=== PATIENT | female | born 2000 | race American Indian/Alaskan Native ===

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

== ENCOUNTER 2019-01-10 19:36 | Emergency (ER) | payer MEDICAID ==
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
[2019-01-10 21:00] LABS: Basophils % (Auto) 0.4 % (0.0-1.8); Hematocrit 36.4 % (30.3-42.9); Lymphocytes # (Auto) 1.4 K/mm3 (1.2-5.4); Lymphocytes % (Auto) 31.9 % (13.4-35.0); Mean Corpuscular HGB Conc 33 % (30-34); Mean Corpuscular Volume 84 fl (79-97); Monocytes # (Auto) 0.3 K/mm3 (0.0-0.8); Monocytes % (Auto) 7.2 % (0.0-7.3); Platelet Count 252 K/mm3 (140-440); Red Blood Count 4.36 M/mm3 (3.65-5.03); Red Cell Distribution Width 13.2 % (13.2-15.2)
[2019-01-10 21:07] LABS: Alanine Aminotransferase 11 units/L (7-56); Albumin 4.6 g/dL (3.9-5); BUN/Creatinine Ratio 19; Blood Urea Nitrogen 13 mg/dL (7-17); Calcium 9.4 mg/dL (8.4-10.2); Hemolysis Index 4
[2019-01-10 22:09] LABS: HCG Qualitative,Urine Negative (Negative)
[2019-01-10 22:12] LABS: Bilirubin,Urine NEG (Negative); Blood,Urine LG (Negative); Color,Urine Amber (Yellow); Hyaline Casts,Urine 2 /LPF; Mucus,Urine 3+ /HPF
--- NOTE | 2019-01-10 23:12 | XRay Report ---
CHEST 2 VIEWS INDICATION: Medical Clearance Psych. COMPARISON: None FINDINGS: Support devices: None. Heart: Within normal limits. Lungs: No acute air space or interstitial disease. Pleura: No significant pleural effusion. No pneumothorax. Additional findings: None. IMPRESSION: 1. No acute findings. Signer Name: Perry Correa MD Signed: 01/10/2019 11:07 PM Workstation Name: [id number]
[2019-01-10 23:54] VITALS: BP 116/75
== END 2019-01-10 23:56 | disposition home or self-care (01) ==
LOC: ED 19:36
DX: F31.9 Bipolar disorder, unspecified (principal); R46.89 Other symptoms and signs involving appearance and behavior; R45.850 Homicidal ideations; F43.10 Post-traumatic stress disorder, unspecified; F32.9 Major depressive disorder, single episode, unspecified; F41.9 Anxiety disorder, unspecified; F17.200 Nicotine dependence, unspecified, uncomplicated
CPT/HCPCS: 36415; 71046; 80053; 80320; 81001; 81025; 84703; 85025; 87086; G0480

== ENCOUNTER 2019-01-11 01:25 | Emergency (ER) | payer MEDICAID ==
--- NOTE | 2019-01-11 02:00 | Emergency Department Report ---
ED Psych HPI - General Chief Complaint: Medical Clearance Stated Complaint: NEED MED CHANGE Source: patient Mode of arrival: Ambulatory - History of Present Illness Initial Comments: pt is a 18 y/o aam with hx of depression who presents for worsening depression, requesting placement is psych facility. pt denies SI or HI, does endorse increased depressive thoughts. pt denies substance but want to talk psychiatrist for medication change as hers is not working (Minipress, zoloft,vistaril trazadone). Symptoms are preventing sleep. pt has been seen and dc'd earlier today. She now rates depression symptoms at 09/19. There is no plan, no SI, no HI, states just too depressed. p states she receives outpatient care at [facility]. Complaint: feels depressed Onset/Timin -: week(s) Associated Psychiatric Symptoms: depression History of same: Yes Quality: constant Improves With: none Worsens With: none Context: recent drug abuse Treatments Prior to Arrival: none - Related Data Home Medications Medication Instructions Recorded Confirmed Last Taken OLANzapine [ZyPREXA] 10 mg PO QHS 01/11/19 01/11/19 01/09/19 Prazosin [Minipress] 1 mg PO BID 01/11/19 01/11/19 01/09/19 Sertraline [Zoloft] 50 mg PO QAM 01/11/19 01/11/19 01/09/19 hydrOXYzine PAMOATE [Vistaril] 25 mg PO QHS 01/11/19 01/11/19 01/09/19 traZODone [Desyrel] 100 mg PO QHS 01/11/19 01/11/19 01/09/19 Allergies Allergy/AdvReac Type Severity Reaction Status Date / Time No Known Allergies Allergy Unverified 12/09/18 10:41 ED Review of Systems ROS: Stated complaint: NEED MED CHANGE Other details as noted in HPI Constitutional: denies: chills, fever Eyes: denies: eye pain, eye discharge, vision change ENT: denies: ear pain, throat pain Respiratory: denies: cough, shortness of breath, wheezing Cardiovascular: denies: chest pain, palpitations Endocrine: no symptoms reported Gastrointestinal: denies: abdominal pain, nausea, diarrhea Genitourinary: as per HPI Musculoskeletal: denies: back pain, joint swelling, arthralgia Skin: denies: rash, lesions Neurological: as per HPI Psychiatric: anxiety, depression. denies: auditory hallucinations, visual hallucinations, homicidal thoughts, suicidal thoughts Hematological/Lymphatic: denies: easy bleeding, easy bruising ED Past Medical Hx - Past Medical History Previous Medical History?: Yes Hx Psychiatric Treatment: Yes (PTSD, DEPRESSION, ANXIETY AND BIPOLAR) - Surgical History Past Surgical History?: No - Social History Smoking Status: Current Every Day Smoker Substance Use Type: Alcohol, Marijuana - Medications Home Medications: Home Medications Medication Instructions Recorded Confirmed Last Taken Type OLANzapine [ZyPREXA] 10 mg PO QHS 01/11/19 01/11/19 01/09/19 History Prazosin [Minipress] 1 mg PO BID 01/11/19 01/11/19 01/09/19 History Sertraline [Zoloft] 50 mg PO QAM 01/11/19 01/11/19 01/09/19 History hydrOXYzine PAMOATE [Vistaril] 25 mg PO QHS 01/11/19 01/11/19 01/09/19 History traZODone [Desyrel] 100 mg PO QHS 01/11/19 01/11/19 01/09/19 History ED Physical Exam - General Limitations: No Limitations General appearance: alert, in no apparent distress - Head Head exam: Present: atraumatic, normocephalic - Eye Eye exam: Present: normal appearance, PERRL, EOMI Pupils: Present: normal accommodation - ENT ENT exam: Present: mucous membranes moist - Neck Neck exam: Present: normal inspection, full ROM. Absent: tenderness - Respiratory Respiratory exam: Present: normal lung sounds bilaterally. Absent: respiratory distress, wheezes, stridor, chest wall tenderness - Cardiovascular Cardiovascular Exam: Present: regular rate, normal rhythm, normal heart sounds. Absent: systolic murmur, diastolic murmur, rubs, gallop - GI/Abdominal GI/Abdominal exam: Present: soft, normal bowel sounds. Absent: distended, tenderness, bruit, hernia - Rectal Rectal exam: Present: deferred - Extremities Exam Extremities exam: Present: normal inspection - Back Exam Back exam: Present: normal inspection, full ROM. Absent: tenderness, CVA tenderness (R), CVA tenderness (L) - Neurological Exam Neurological exam: Present: alert, oriented X3 - Psychiatric Psychiatric exam: Present: depressed, anxious, flat affect - Skin Skin exam: Present: warm, dry, intact, normal color. Absent: rash ED Course Vital Signs 01/11/19 01:30 Temperature 97.8 F Pulse Rate 66 Respiratory 12 Rate Blood Pressure 135/83 O2 Sat by Pulse 99 Oximetry - Reevaluation(s) Reevaluation #1: Psychconsult placed, labs noted pt is medically cleared for psych treatment. 01/11/19 02:11 ED Medical Decision Making - Medical Decision Making Pt pending psych evaluation and disposition. Critical care attestation.: If time is entered above; I have spent that time in minutes in the direct care of this critically ill patient, excluding procedure time. ED Disposition Condition: Stable
[2019-01-11 06:39] VITALS: BP 126/52
== END 2019-01-11 06:42 | disposition home or self-care (01) ==
LOC: ED 01:25
DX: F32.9 Major depressive disorder, single episode, unspecified (principal); F17.200 Nicotine dependence, unspecified, uncomplicated; F12.10 Cannabis abuse, uncomplicated